=== PATIENT | male | born 1960 | race Caucasian/White ===

== ENCOUNTER 2018-07-21 17:11 | Emergency (ER) | payer MEDICARE ==
[2018-07-21 17:28] VITALS: BP 176/93
--- NOTE | 2018-07-21 18:43 | ER Document Report ---
Doctor's Note Notes: 07/21/18 18:41 On initial evaluation of this patient's I did inform the patient that I would be happy to give him a dose here in the emergency department of his Seroquel and risperidone. I further explained to the patient that I would be happy to re -prescribe him his Seroquel and risperidone but that I would not be re- prescribing the Valium or Adderall. Patient became very angry raising his voice and asking why we would not give this. I explained to the patient that this is an emergency department and we do not refill controlled substances. Patient became very angry and stormed out of the emergency department.
== END 2018-07-21 18:45 | disposition left against medical advice (07) ==
LOC: ER 17:11
DX: Z76.0 Encounter for issue of repeat prescription (principal)
CPT/HCPCS: 99281